=== PATIENT | female | born 1975 | race Caucasian/White ===

== ENCOUNTER 2017-01-12 20:47 | Emergency (ER) | payer OTHER ==
[2017-01-12 21:35] LABS: BASOPHIL 0.4 % (0-2); EOSINOPHIL 1.7 % (0-5); HCT 33.9 % (37.0-47.0); HGB 12.2 g/dl (12.5-16.0); LYMPHOCYTE 44.3 % (15-48); MCH 31.9 pg (25.0-31.0); MCV 88.7 fL (78.0-100.0); MONOCYTE 12.4 % (0-12); MPV 8.8 fL (6.0-9.5); NEUTROPHIL 41.2 % (41-80); PLT 223 K/uL (150-400); RBC 3.82 M/uL (4.20-5.40); RDW 12.3 % (11.5-14.0); WBC 4.7 K/uL (4.0-10.5)
[2017-01-12 21:54] LABS: ALBUMIN 4.1 g/dL (3.5-5.0); BILIRUBIN - TOTAL 0.4 mg/dL (0.1-1.0); CREATININE 0.8 mg/dL (0.5-1.0); GLOBULIN (CALCULATION) 2.9 g/dL (2.2-4.2); POTASSIUM 3.7 mmol/L (3.5-5.1)
[2017-01-12 22:10] LABS: BILIRUBIN 1+ mg/dL (NEGATIVE); BLOOD NEGATIVE Ery/uL (NEGATIVE); CLARITY CLEAR (CLEAR); COLOR YELLOW (YELLOW); GLUCOSE (U) NORMAL (NORMAL); KETONE (U) NEGATIVE (NEGATIVE); LEUKOCYTES NEGATIVE Leu/uL (NEGATIVE); NITRITE NEGATIVE (NEGATIVE); PROTEIN TRACE (LOW) mg/dL (NEGATIVE); SPECIFIC GRAVITY >=1.030 (1.001-1.030)
[2017-01-12 22:17] LABS: URINARY WBC RARE
[2017-01-12 22:20] LABS: AMPHETAMINES POSITIVE (NEGATIVE); BARBITURATES NEGATIVE (NEGATIVE); BENZODIAZEPINES NEGATIVE (NEGATIVE); COCAINE NEGATIVE (NEGATIVE); MARIJUANA (THC) NEGATIVE (NEGATIVE); METHADONE NEGATIVE (NEGATIVE); TRICYCLIC ANTIDEPRESSANT POSITIVE (NEGATIVE)
== END 2017-01-12 22:34 | disposition home or self-care (01) ==
LOC: FER 20:47
PROVIDERS: Emergency Medicine
DX: K59.00 Constipation, unspecified (principal); M54.5 Low back pain; G89.29 Other chronic pain; Z87.442 Personal history of urinary calculi
CPT/HCPCS: 36415; 80053; 80305; 81001; 85025; J1885